=== PATIENT | female | born 1940 | race Caucasian/White ===

== ENCOUNTER 2020-08-14 08:29 | Day surgery (SDC) | payer OTHER ==
[~2020-08-14] VITALS: Ht 165.1 cm; Wt 63.5 kg
--- NOTE | ~2020-08-14 | O ---
[facility] [place] [address] OPERATIVE REPORT Name: SHAREE GRAY Room #: REG [facility]..#: [id number] Admission: 08/14/20 Attend Phys: Geovany Smith MD Discharge: Date of : 38 Report #: [id number] THIS REPORT FOR: cc: Physician not on staff Physician not on staff Geovany Smith MD ~ DOC #: [id number] cc: Dr. Ernestine Chen MD DATE OF SERVICE: 08/14/2020 PREOPERATIVE DIAGNOSIS: Tumor of left lower lid. POSTOPERATIVE DIAGNOSES: Tumor of left lower lid, basal cell carcinoma. PROCEDURE: Excision of tumor of left lower lid with frozen sections and myocutaneous flap repair of defect. SURGEON: Geovany Smith MD CORRECTIONAL PROGRAM SPECIALIST: None. COMPLICATIONS: None. INDICATIONS FOR SURGERY: This pleasant 80-year-old woman has a nodular ulcerative lesion in her central left lower lid with absolute madarosis that appears to be a basal cell carcinoma. She presents today for excision of this lesion with frozen sections and subsequent reconstruction of that defect. Informed consent was obtained to include but not limited to the potential risk for loss of vision, bleeding, infection, failure to improve the problem, the potential need for further surgery or treatment. DESCRIPTION OF PROCEDURE: The patient was taken to the operating room where 2% Xylocaine with epinephrine mixed with equal parts of 0.75% Marcaine with Wydase was administered transcutaneously and transconjunctivally to the left lower lid, left lateral canthus, the left cheek and the left upper lid. The patient was subsequently prepped and draped in the usual sterile fashion. A fine tip skin marking pen was then utilized to outline the lesion including 1-2 mm of normal-appearing tissue around its margins. The incisions were then made perpendicularly across the eyelid margin and drawn to a point in the premalar space. The specimen was then oriented on a drawing for the waiting pathologist. The field was dried with diligent pinpoint monopolar cautery. The pathologist snap froze that tissue and found that the margin was indeed clear. She also related that the tumor itself was a basal cell carcinoma. [address] [address] OPERATIVE REPORT Name: SHAREE GRAY [facility] Room #: REG [facility].#: [id number] Admission: 08/14/20 Attend Phys: Geovany Smith MD Discharge: Date of : 38 Report #: [id number] A myocutaneous flap was then developed laterally to be rotated medially to correct the defect. Hemostasis was then re-achieved. The flap was then advanced and secured with multiple interrupted buried 5-0 Vicryl sutures deep. The tarsal plate was then reapproximated with interrupted 5-0 Vicryl sutures deep. The eyelid margin was reapproximated with interrupted 7-0 Vicryl sutures. The subcutaneous structures and the skin were superficially closed with a buried layer of Vicryl followed by a final closure of 6-0 plain. The wounds were then cleaned and dressed with erythromycin ophthalmic ointment. The patient subsequently transported to the recovery area, having tolerated the procedures well with no anesthetic or operative complications being noted. Geovany Smith MD [facility]/LOVE/CLAUDETTE By: [id number] Geovany Smith MD /nt
[~2020-08-14 08:29] MED LIST: 5-HTP100 MG PO; GINKGO BILOBA40 MG PO; LEVOXYL50 MCG PO; MELATONIN3 M2 PO; OMEGA-3 FISH1200 MG PO; SOOTHE LUBRICA1 EACH OPHTHALMIC; UBIQUINOL100 MG PO; VALACYCLOVIR1000 MG PO; VITAMIN B12-FO1 EAC1 PO; VITAMIN D350 MC3 PO
[2020-08-14 10:30] VITALS: BP 137/78
--- NOTE | 2020-08-15 17:07 | PATH ---
[facility] [address] [place] [address] PATHOLOGY RPT PROCEDURE Name: SHAREE GRAY Room #: DEP [facility].#: [id number] Admission: 08/14/20 Date of : 38 Discharge: 08/14/20 Report #: [id number] Path Case #: [id number] [facility] Accession Number: [id number] . 01 Material submitted: . eyelid - LESION LEFT LOWER EYELID-FS. Modifiers: left, lower . 01 Clinical history: . EXCISION LESION EYE . 02 Frozen section diagnosis: . FROZEN SECTION DIAGNOSIS: (Lucy Oakes M.D.): . FSA1. Lesion left lower eyelid, excision: - Negative for invasive carcinoma at margins on FS slides (levels 1 to 3). . These findings are discussed with Dr. Geovany Smith in OR6 at [facility] and a written report is placed in the patient's chart. . Frozen section performed at [facility], [address], [place] [address]. . FROZEN SECTION GROSS DESCRIPTION: The specimen is received fresh from the OR labeled with the patient's name, and "lesion left lower eyelid frozen section" consists of an inverted triangular specimen measuring 1.2 x 1.0 cm (at base) x 0.5 cm. The specimen is oriented as lateral, inferior and medial. The lateral to inferior margin is inked black including its deep margin. The inferior half of the medial margin is inked blue and the superior half of the medial margin is inked green. At this point the specimen is sectioned into four pieces and submitted for frozen section as FSA1, this is subsequently submitted for permanent sections as A1. (IUV/db; 08/14/2020) IZV/LBQ . 02 Diagnosis: Skin, left lower eyelid lesion, excision: - BASAL CELL CARCINOMA. - Margins of resection free of malignancy. (IUV:arnulfo; 08/15/2020) QMS 08/15/2020 1157 Local . 02 Electronically signed: . Lucy Oakes MD, Pathologist NPI- [id number] . [address] [place] [address] PATHOLOGY RPT PROCEDURE Name: SHAREE GRAY Room #: DEP [facility] M.R.#: [id number] Admission: 08/14/20 Date of : 38 Discharge: 08/14/20 Report #: [id number] Path Case #: [id number] Gross description: . SEE FROZEN SECTION GROSS DESCRIPTION. BLJ/BLJ 08/15/2020 1157 Local . 02 Pathologist provided ICD-10: C44.1192 . 02 CPT . 013799, [id number] Specimen Comment: A courtesy copy of this report has been sent to [phone] Specimen Comment: Report sent to Performed at: [address], [place] [id number] MD Angelo Rodrigues MD Phone: [phone] Performed at: [address] [id number] MD Lucy Oakes MD Phone: [phone]
== END 2020-08-14 13:16 | disposition home or self-care (01) ==
LOC: OR 08:29
PROVIDERS: ATTEND Ophthalmology
DX: C44.1192 Basal cell carcinoma of skin of left lower eyelid, including canthus (principal); Z98.890 Other specified postprocedural states; Z90.710 Acquired absence of both cervix and uterus; Z90.49 Acquired absence of other specified parts of digestive tract; Z20.822 Contact with and (suspected) exposure to COVID-19; Z79.899 Other long term (current) drug therapy
CPT/HCPCS: 50010; 50101; 50386; 50398; 51636; 56528; 56531; 62110; 62850; 70005